=== PATIENT | female | born 1950 | race Caucasian/White ===

== ENCOUNTER 2016-07-10 10:46 | Inpatient (IN) | payer OTHER ==
--- NOTE | ~2016-07-10 | EKG ---
PATIENT: KENYETTA HERNANDEZ UNIT #: [id number] Ventricular Rate: 52 BPM Atrial Rate: 52 BPM P-R Interval: 156 ms QRS Duration: 88 ms Q-T Interval: 490 ms QTC Calculation(Bezet): 455 ms P [place]: 55 degrees Calculated R [place]: -2 degrees Calculated T [place]: 19 degrees Diagnosis Line: Sinus bradycardia Diagnosis Line: Lateral infarct (cited on or before 13-JUL-2016) Diagnosis Line: Possible Inferior infarct , age undetermined Diagnosis Line: Abnormal ECG Diagnosis Line: When compared with ECG of 10-JUL-2016 10:09, Diagnosis Line: Borderline criteria for Inferior infarct are now Diagnosis Line: Present Diagnosis Line: T wave amplitude has decreased in Anterior leads Diagnosis Line: Confirmed by CLAUDIO MERCADO MD ([id number]) on 07/16/2016 Diagnosis Line: 7:32:50 AM INTERPRETING MD: JESS MCKEON
--- NOTE | ~2016-07-10 | HP ---
Unit #: [id number] #: [id number] Patient: KENYETTA HERNANDEZ [id number] [address] [place], [place] [address] [id number] MR#: [id number] NAME: KENYETTA HERNANDEZ ROOM: [id number] Age: 66 Sex: F Admission Date: 07/10/2016 : 1950 Attending Physician: Deloris Gray M.D. Primary Care Physician: Paris Franklin M.D. HISTORY AND PHYSICAL CHIEF COMPLAINT Abnormal labs. HISTORY OF PRESENT ILLNESS The patient is a 66-year-old female with a past medical history of chronic kidney disease, chronic anemia, hypertension, CHF, cerebrovascular accident, diabetes, who presented to the emergency department for evaluation of the above. The patient apparently had labs drawn at her primary care physician's office yesterday. She was called this morning and told to come to the emergency department due to abnormal potassium. The patient denies any fever, no cough or cold symptoms, no chest pain, no difficulty breathing, no bowel or bladder problems. She was found to have a potassium of 5.6. She was given calcium gluconate, an amp of bicarb, 10 units of insulin with an amp of D50 as well as 15 grams of Kayexalate. BUN and creatinine are 57 and 2.8 respectively. Of note, the patient was hospitalized at [facility] a little over a week ago for congestive heart failure. The patient's brother states that she was started on Bumex as well as a potassium supplement and spironolactone which she has been taking as prescribed. She has lost 18 pounds since being discharged from the hospital. PAST MEDICAL HISTORY 1. Admission to [facility] for congestive heart failure. Discharged July 02, 2016 (no records). 2. Congestive heart failure, followed by Dr. Eisenberg with unknown ejection fraction. 3. Chronic kidney disease, followed by Dr. Finn. There is no baseline creatinine for comparison. 4. Hypertension. 5. 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 6. Diabetes, diet controlled. PAST SURGICAL HISTORY Hysterectomy. SOCIAL HISTORY The patient lives with her brother. She walks with a cane. There is no tobacco or alcohol use. FAMILY HISTORY Notable for both parents having diabetes. Unit #: [id number] #: [id number] Patient: KENYETTA HERNANDEZ ALLERGIES No known allergies. MEDICATIONS Home medications include: 1. Albuterol. 2. Amlodipine. 3. Aspirin. 4. Bumex. 5. Donepezil. 6. Hydralazine. 7. Isosorbide mononitrate. 8. Potassium. 9. Sertraline. 10. Spironolactone. Home medications will need to be reviewed and verified. REVIEW OF SYSTEMS A complete review of systems is negative except as indicated in the HPI. DIAGNOSTIC STUDIES CARDIOVASCULAR: EKG shows marked sinus bradycardia with a rate of 43 beats per minute. LABORATORY: Complete blood count notable for hemoglobin and hematocrit of 10.2 and 31.3 respectively. INR is 1. Comprehensive metabolic panel notable for potassium 5.6, glucose 111, BUN and creatinine 57 and 2.8 respectively. Total protein is 9.1. PHYSICAL EXAMINATION VITAL SIGNS: Temperature is 97.8, pulse 50, respirations 14, blood pressure 157/54. Oxygen saturation is 100% on room air. GENERAL: The patient is a female who is awake and alert, in no acute distress. HEENT: The head is atraumatic. Mucous membranes are moist. NECK: Supple. Trachea is midline. CARDIOVASCULAR: Regular rate and rhythm. LUNGS: Clear to auscultation bilaterally with no increased work of breathing. ABDOMEN: Soft, nontender with bowel sounds present in all four quadrants. EXTREMITIES: Nontender with no pedal edema. NEUROLOGIC: The patient is awake and alert. She is oriented to person and place (at baseline per her brother). She follows commands. PSYCH: Mood and affect are normal. The patient is cooperative. SKIN: Skin of examined areas is warm and dry. ASSESSMENT The patient is a 66-year-old female with: 1. Hyperkalemia: The patient was recently started on spironolactone as well as potassium supplement which could be contributing. The patient received Kayexalate, calcium gluconate, bicarb, insulin and D50 in the emergency department. 2. Chronic kidney disease: The patient's creatinine is 2.8 with no baseline for comparison. 3. Chronic anemia: Hemoglobin is 10.2 today, again with no baseline for comparison. Unit #: [id number] #: [id number] Patient: MARY,KENYETTA 4. Hypertension. 5. Congestive heart failure with unknown ejection fraction. 6. Cerebrovascular accident with residual memory issues. 7. Diabetes, diet controlled. PLAN 1. Admit for observation to intermediate level. 2. Repeat BMP later this evening. 3. Serial cardiac enzymes. 4. Check urinalysis. 5. 2 g sodium 1800 mL fluid restricted heart healthy consistent carb diet. 6. Strict I's and O's. 7. Daily weights. 8. Consult Dr. Finn, the patient's stem assembler regarding chronic kidney disease and hyperkalemia. 9. Will hold spironolactone and potassium supplementation for now. 10. Hemoglobin A1c. 11. Low dose sliding scale insulin with Accu-Cheks. 12. Get records from [facility]. 13. SCDs for DVT prophylaxis. 14. Repeat labs in the morning. 15. Additional workup and consultants based on above. Dictated by Deloris Gray M.D. MARGARITA/ann TD: 07/10/2016 13:54 JOB #: [id number] HISTORY AND PHYSICAL X Deloris Gray MD X HISTORY AND PHYSICAL
--- NOTE | ~2016-07-10 | DS ---
Unit #: [id number] #: [id number] Patient: KENYETTA HERNANDEZ [id number] [address] [address] [id number] I MR#: [id number] NAME: KENYETTA HERNANDEZ ROOM: 310 Age: 66 Sex: F Admission Date: 07/10/2016 : 1950 Discharge Date: 07/13/2016 Attending Physician: Kellen Gaffney M.D. Primary Care Physician: Paris Franklin M.D. DISCHARGE SUMMARY DISCHARGE DIAGNOSES 1. Acute kidney injury on chronic kidney disease, likely stage 3. 2. Hyperkalemia, secondary to acute kidney injury. 3. Hypertensive crisis. 4. Chronic anemia. 5. Hypertension. 6. Chronic diastolic heart failure. 7. Diabetes, diet controlled. 8. Cerebrovascular accident with residual memory issues. CONSULTATION Dr. Finn. PROCEDURE None. DIAGNOSTIC STUDIES LABORATORY: Glucose 317, sodium 138, potassium 3.9, creatinine 2. TSH 1.4. Hemoglobin A1c 5.6. ALLERGIES None. DISCHARGE MEDICATIONS 1. Albuterol two puffs inhalation q.6 p.r.n. shortness of breath. 2. Zoloft 100 mg p.o. daily. 3. Norvasc 10 mg p.o. daily. 4. Aricept 5 mg daily. 5. Hydralazine 150 mg three times daily. 6. Minoxidil 5 mg p.o. b.i.d. 7. Aspirin 81 daily. 8. Protonix 40 p.o. daily. 9. Imdur ER 60 mg p.o. in the morning. HOSPITALIZATION COURSE A 66 year old admitted because of high potassium. Acute kidney injury with chronic kidney disease stage 3: The patient is seen by Dr. Finn. He adjusted the medicines. The patient received fluids. Her Bumex and Aldactone has been discontinued, currently creatinine is 2, most likely her baseline. Follow with Dr. Finn as an outpatient. Hyperkalemia secondary to acute kidney injury: The patient received a Unit #: [id number] #: [id number] Patient: KENYETTA HERNANDEZ treatment for it including calcium bicarbonate, insulin, and Kayexalate. Currently, potassium is stable. Hypertensive crisis: She does have chronic history of high blood pressure which has been diagnosed and worked up for secondary causes also. Hydralazine has been increased and minoxidil has been added. Currently, blood pressure is mildly high around 160. The patient will continue with medications and follow with Dr. Eisenberg as an outpatient. Diabetes: Controlled. Continue with diet control. The patient has sinus bradycardia secondary to medications so she cannot get her clonidine which has been discontinued. Chronic diastolic heart failure: Stable. Anemia: Most likely secondary to chronic kidney disease. No active bleeding. Stable. History of CVA with memory deficits: Continue with supportive care. Patient lives with family. The patient will have home health upon discharge. DISPOSITION Discharge home with home health. I discussed with brother who takes care of her. He is okay for the patient to come home with home health. FOLLOWUP 1. Follow with family physician in one week time. 2. Follow with Dr. Eisenberg on August 23, 2016. 3. Follow with Dr. Finn in two weeks time. Discharge time taken is 31 minutes. Dictated by... Kellen Gaffney M.D. MAXIME/aashish TD: 07/13/2016 16:57 JOB #: [id number] DISCHARGE SUMMARY Page 1 of 1 X Kellen Gaffney MD X DISCHARGE SUMMARY
--- NOTE | ~2016-07-10 | CO ---
Unit #: [id number] #: [id number] Patient: KENYETTA HERNANDEZ [id number] [address] [place], [place] [address] [id number] I MR#: [id number] NAME: KENYETTA HERNANDEZ ROOM: 310 Age: 66 Sex: F Admission Date: 07/10/2016 : 1950 Attending Physician: Deloris Gray M.D. Primary Care Physician: Paris Franklin M.D. Consultation Date: 07/10/2016 CONSULTATION REPORT Consult is requested for hyperkalemia. HISTORY OF PRESENT ILLNESS The patient is a 66-year-old female, well known to me. She was followed by me as an outpatient for her chronic kidney disease. She has a history of uncontrolled hypertension, history of CHF secondary to diastolic dysfunction, history of diabetes mellitus, and history of recurrent hyperkalemia. The patient recently was discharged from [facility]. She was treated apparently for volume overload with diuretics, also had been discharged on Aldactone and potassium supplementation. The patient had blood work done by her primary care physician, which revealed elevated serum potassium level. Here, in the emergency room, her serum potassium was 5.6, which has been treated. Her serum creatinine at baseline which was around 2.2 to 2.4, now it is increased to 2.8. The patient has had history of recurrent hyperkalemia. She at one time was on triamterene and was taken off the medication at her last office visit. I have started her on chlorthalidone, I am not sure whether the patient has been taking this medicine. PAST MEDICAL HISTORY 1. Chronic kidney disease. 2. Hypertension. 3. CHF secondary to diastolic dysfunction. 4. History of diabetes mellitus. 5. History of recurrent hyperkalemia. MEDICATIONS The patient's home medications; amlodipine 10 mg daily, Aricept 5 mg daily, aspirin 81 mg daily, clonidine 0.1 mg p.o. t.i.d., Coreg 6.25 p.o. b.i.d., hydralazine 100 mg t.i.d., Imdur 60 mg daily, minoxidil 5 mg p.o. b.i.d., Zoloft 50 mg daily, Ventolin inhalation 2 puffs b.i.d. PHYSICAL EXAMINATION VITAL SIGNS: Pulse 47, blood pressure 137/59. She is afebrile. GENERAL: Reveals no pallor, icterus, or lymphadenopathy. HEENT: Neck; supple. Throat; clear to exam. Pupils bilaterally equal and reactive to light. ABDOMEN: Soft. It is nontender. There is no organomegaly. EXTREMITIES: Reveal no edema. DIAGNOSTIC STUDIES LABORATORY RESULTS: Serum sodium 137, potassium 5.6, chloride 103, CO2 of 23, BUN of 57, creatinine 2.8. Hemoglobin 10.2, hematocrit 30.3, platelet Unit #: [id number] #: [id number] Patient: KENYETTA HERNANDEZ count 295,000, WBC count 7,600. ASSESSMENT 1. Hyperkalemia, likely secondary to chronic kidney disease, her potassium and Aldactone supplementation. 2. Hypertension, currently seems to be fairly under control. 3. History of congestive heart failure. She looks fairly euvolemic. 4. History of chronic kidney disease secondary to hypertensive nephrosclerosis. Her renal function does increase from baseline, likely could be diuretic induced. PLAN 1. Her hyperkalemia has been treated. We will obtain a repeat potassium level later this afternoon. 2. We will obtain urinalysis. 3. We will replace the patient on a low-potassium diet. 4. We will follow up labs in the morning too. Further recommendations based on the hospital course. Dictated by... Noé Christensen/mark TD: 07/11/2016 02:37 JOB #: [id number] CONSULTATION REPORT X Deondre Finn MD X CONSULTATION REPORT
--- NOTE | ~2016-07-10 | EKG ---
PATIENT: KENYETTA HERNANDEZ UNIT #: [id number] Ventricular Rate: 43 BPM Atrial Rate: 43 BPM P-R Interval: 150 ms QRS Duration: 94 ms Q-T Interval: 484 ms QTC Calculation(Bezet): 408 ms P [place]: 72 degrees Calculated R [place]: 5 degrees Calculated T [place]: 71 degrees Diagnosis Line: Marked sinus bradycardia Diagnosis Line: Abnormal ECG Diagnosis Line: No previous ECGs available Diagnosis Line: Confirmed by FLORIN MARES MD ([id number]) on Diagnosis Line: 07/11/2016 7:59:27 PM INTERPRETING MD: FADI
[2016-07-10 10:29] LABS: BASOPHIL# 0.1 X10e3 (0-0.3); EOSINOPHIL# 0.1 X10e3 (0-0.7); EOSINOPHIL% 1.7 % (0.0-7.0); HEMATOCRIT 31.3 % (35.0-45.0); HEMOGLOBIN 10.2 gm/dL (12.0-16.0); LYMPHOCYTE# 1.5 X10e3 (1.0-3.5); LYMPHOCYTE% 20.4 % (17.0-45.0); MEAN CELL VOLUME 80.8 FL (83-96); MEAN CORPUSCULAR HEMOGLOBIN 26.2 PG (28-34); MEAN CORPUSCULAR HGB CONC 32.5 g/dL (30-36); MEAN PLATELET VOLUME 8.5 FL (6.5-11.5); MONOCYTE# 0.6 X10e3 (0-1.0); MONOCYTE% 7.7 % (3.0-12.0); NEUTROPHIL# 5.2 X10e3 (1.5-7.1); NEUTROPHIL% 69.2 % (40-75); PLATELET COUNT 295 X10e3 (140-420); RED BLOOD COUNT 3.88 X10e (3.90-5.30); RED CELL DISTRIBUTION WIDTH 16.3 % (11.0-15.5); WHITE BLOOD COUNT 7.6 X10e3 (4.0-10.5)
[2016-07-10 10:30] LABS: DIFF IND NO
[2016-07-10 10:40] LABS: PROTHROMBIN TIME (PATIENT) 10.9 SECONDS (9.6-11.5)
[2016-07-10 11:09] LABS: ALBUMIN SERUM 4.7 g/dL (3.5-5.0); BILIRUBIN, DIRECT 0.1 mg/dL (0.0-0.2); BILIRUBIN,INDIRECT 0.5 mg/dL (0.0-0.9); BILIRUBIN,TOTAL 0.6 mg/dL (0.2-2.0); BUN/CREATININE RATIO 20.35; CALCIUM SERUM 9.9 mg/dL (8.4-10.2); CREATININE SERUM 2.8 mg/dL (0.6-1.4); GLOM FILT RATE Estimated 17.9 mL/min (>60); PROTEIN TOTAL SERUM 9.1 g/dL (6.0-8.3)
[2016-07-10 11:10] LABS: POTASSIUM 5.6 mmol/L (3.5-5.1)
[2016-07-10 14:22] LABS: CK TOTAL 56 IU/L (26-140)
[2016-07-10] MEDS ORDERED: ALBUTEROL17 GM INH (14:25)
[2016-07-10] MEDS ORDERED: AMLODIPINE BESY10 MG PO (14:26)
[2016-07-10] MEDS ORDERED: ASPIRIN81 MG PO (14:26)
[2016-07-10] MEDS ORDERED: CATAPRES0.1 MG PO (14:27)
[2016-07-10] MEDS ORDERED: BUMEX1 MG PO (14:27)
[2016-07-10] MEDS ORDERED: ARICEPT5 M1 PO (14:27)
[2016-07-10] MEDS ORDERED: HYDRALAZINE HC100 MG PO (14:27)
[2016-07-10] MEDS ORDERED: IMDUR-ER60 M1 PO (14:28)
[2016-07-10] MEDS ORDERED: POTASSIUM CHLO20 ME1 PO (14:28)
[2016-07-10] MEDS ORDERED: ALDACTONE25 MG PO (14:29)
[2016-07-10] MEDS ORDERED: SERTRALINE HCL100 M1 PO (14:29)
[2016-07-10] MEDS ORDERED: PANTOPRAZOLE SO40 MG PO (14:30)
[2016-07-10 14:34] LABS: POC - CKMB <1.0 ng/mL (0.0-7.9); POC - TROPONIN <0.05 ng/mL (<=0.05)
[2016-07-10 16:45] LABS: CALCIUM SERUM 9.7 mg/dL (8.4-10.2); CREATININE SERUM 2.8 mg/dL (0.6-1.4); GLOM FILT RATE Estimated 17.9 mL/min (>60); POTASSIUM 4.8 mmol/L (3.5-5.1)
[2016-07-10 17:32] LABS: URINE APPEARANCE CLEAR; URINE BILIRUBIN NEG (NEG); URINE BLOOD NEG (NEG); URINE COLOR YELLOW; URINE GLUCOSE 100 MG/DL (NEG); URINE KETONE NEG (NEG); URINE LEUKOCYTE ESTERASE NEG (NEG); URINE NITRATE NEG (NEG); URINE PROTEIN TRACE (NEG); URINE UROBILINOGEN 0.2 MG/DL (NEG)
[2016-07-10 20:06] LABS: CK TOTAL 49 IU/L (26-140)
[2016-07-11 01:56] LABS: CK TOTAL 51 IU/L (26-140)
[2016-07-11 06:04] LABS: HEMATOCRIT 28.5 % (35.0-45.0); HEMOGLOBIN 9.1 gm/dL (12.0-16.0); MEAN CELL VOLUME 80.5 FL (83-96); MEAN CORPUSCULAR HEMOGLOBIN 25.5 PG (28-34); MEAN CORPUSCULAR HGB CONC 31.7 g/dL (30-36); MEAN PLATELET VOLUME 9.7 FL (6.5-11.5); RED BLOOD COUNT 3.55 X10e (3.90-5.30); RED CELL DISTRIBUTION WIDTH 16.2 % (11.0-15.5); WHITE BLOOD COUNT 6.8 X10e3 (4.0-10.5)
[2016-07-11 06:43] LABS: ALBUMIN SERUM 3.8 g/dL (3.5-5.0); BILIRUBIN,TOTAL 0.5 mg/dL (0.2-2.0); BUN/CREATININE RATIO 24.34; CALCIUM SERUM 9.2 mg/dL (8.4-10.2); CREATININE SERUM 2.3 mg/dL (0.6-1.4); GLOM FILT RATE Estimated 22.5 mL/min (>60); POTASSIUM 4.6 mmol/L (3.5-5.1); PROTEIN TOTAL SERUM 7.1 g/dL (6.0-8.3)
[2016-07-12 08:40] LABS: HEMATOCRIT 29.8 % (35.0-45.0); HEMOGLOBIN 9.6 gm/dL (12.0-16.0); MEAN CELL VOLUME 80.4 FL (83-96); MEAN CORPUSCULAR HEMOGLOBIN 25.8 PG (28-34); MEAN CORPUSCULAR HGB CONC 32.1 g/dL (30-36); MEAN PLATELET VOLUME 9.4 FL (6.5-11.5); RED BLOOD COUNT 3.7 X10e (3.90-5.30); RED CELL DISTRIBUTION WIDTH 16.2 % (11.0-15.5); WHITE BLOOD COUNT 5.9 X10e3 (4.0-10.5)
[2016-07-12 09:15] LABS: CALCIUM SERUM 9.6 mg/dL (8.4-10.2); GLOM FILT RATE Estimated 26.4 mL/min (>60); MAGNESIUM 2.1 mg/dL (1.6-3.0); POTASSIUM 4.2 mmol/L (3.5-5.1)
[2016-07-13 08:49] LABS: BUN/CREATININE RATIO 25.5; CALCIUM SERUM 9.6 mg/dL (8.4-10.2); GLOM FILT RATE Estimated 26.4 mL/min (>60); POTASSIUM 3.9 mmol/L (3.5-5.1)
[2016-07-13] MEDS ORDERED: MINOXIDIL PO (15:55)
[2016-07-13] MEDS ORDERED: APRESOLINE PO (15:55)
== END 2016-07-13 16:49 | disposition home or self-care (01) | DRG 683 ==
LOC: CED 10:46 → CEDOF 13:20 → C3A PCU 21:16
PROVIDERS: Emergency Medicine; Family Medicine; Internal Medicine; Internal Medicine Endocrinology, Diabetes & Metabolism; Internal Medicine Nephrology
DX: N17.9 Acute kidney failure, unspecified (principal); I16.9 Hypertensive crisis, unspecified; F03.90 Unspecified dementia, unspecified severity, without behavioral disturbance, psychotic disturbance, mood disturbance, and anxiety; I13.0 Hypertensive heart and chronic kidney disease with heart failure and stage 1 through stage 4 chronic kidney disease, or unspecified chronic kidney disease; I50.32 Chronic diastolic (congestive) heart failure; D53.9 Nutritional anemia, unspecified; E11.9 Type 2 diabetes mellitus without complications; R00.1 Bradycardia, unspecified; N18.3 Chronic kidney disease, stage 3 (moderate); E87.5 Hyperkalemia; I69.811 Memory deficit following other cerebrovascular disease; Z83.3 Family history of diabetes mellitus; Z90.710 Acquired absence of both cervix and uterus
CPT/HCPCS: 36415; 80048; 80053; 80076; 81003; 82550; 82553; 82947; 83036; 83735; 84443; 84484; 85025; 85027; 85610; 93005; 94760; 99291; J0360; J0610; J1815